=== PATIENT | female | born 1995 | race American Indian/Alaskan Native ===

== ENCOUNTER 2016-10-21 22:33 | Emergency (ER) | payer MEDICAID, OTHER ==
[2016-10-21 23:15] VITALS: BP 113/64
[2016-10-21 23:51] LABS: Basophils % (Auto) 0.2 % (0.0-1.8); Eosinophils % (Auto) 1.4 % (0.0-4.3); Hematocrit 38.9 % (30.3-42.9); Hemoglobin 12.5 gm/dl (10.1-14.3); Mean Corpuscular HGB Conc 32 % (30-34); Mean Corpuscular Hemoglobin 28 pg (28-32); Mean Corpuscular Volume 87 fl (79-97); Platelet Count 267 K/mm3 (140-440); Red Blood Count 4.47 M/mm3 (3.65-5.03); Red Cell Distribution Width 13.8 % (13.2-15.2); White Blood Count 14.4 K/mm3 (4.5-11.0)
[2016-10-22 00:07] LABS: Alanine Aminotransferase 14 units/L (7-56); Albumin 4.1 g/dL (3.9-5); Albumin/Globulin Ratio 1.2 %; Alkaline Phosphatase 51 units/L (35-129); Anion Gap 17 mmol/L; Bilirubin,Total 0.4 mg/dL (0.1-1.2); Blood Urea Nitrogen 9 mg/dL (7-17); Calcium 8.7 mg/dL (8.4-10.2); Carbon Dioxide 24 mmol/L (22-30); Chloride 97.1 mmol/L (98-107); Glucose 80 mg/dL (65-100); Lipase 20 units/L (13-60); Potassium 3.8 mmol/L (3.6-5.0); Sodium 134 mmol/L (137-145); Total Protein 7.4 g/dL (6.3-8.2)
[2016-10-22 01:12] LABS: Bilirubin,Urine NEG (Negative); Blood,Urine NEG (Negative); Ketones,Urine 80 mg/dL (Negative); Leukocyte Esterase,Urine TR (Negative); Mucus,Urine 3+ /HPF; Nitrite,Urine NEG (Negative); Urobilinogen,Urine < 2.0 mg/dL (<2.0)
--- NOTE | 2016-10-23 01:24 | ED Elopement Review ---
ED Pt Elopement review - Results review Lab results: Laboratory Tests 10/21/16 10/21/16 10/21/16 23:44 23:44 Unknown WBC 14.4 H RBC 4.47 Hgb 12.5 Hct 38.9 MCV 87 MCH 28 MCHC 32 RDW 13.8 Plt Count 267 Lymph % (Auto) 18.0 [place] % (Auto) 8.1 H Eos % (Auto) 1.4 Baso % (Auto) 0.2 Lymph # 2.6 [place] # 1.2 H Eos # 0.2 Baso # 0.0 Seg Neutrophils % 72.3 H Seg Neutrophils # 10.4 H Sodium 134 L Potassium 3.8 Chloride 97.1 L Carbon Dioxide 24 Anion Gap 17 BUN 9 Creatinine 0.6 L Estimated GFR > 60 BUN/Creatinine Ratio 15.00 Glucose 80 Calcium 8.7 Total Bilirubin 0.4 AST 16 ALT 14 Alkaline Phosphatase 51 Total Protein 7.4 Albumin 4.1 Albumin/Globulin Ratio 1.2 Lipase 20 Urine Color Yellow Urine Turbidity Clear Urine pH 6.0 Ur Specific [place] 1.027 Urine Protein 30 mg/dl Urine Glucose (UA) Neg Urine Ketones 80 Urine Blood Neg Urine Nitrite Neg Ur Reducing Substances Not Reportable Urine Bilirubin Neg Urine Ictotest Not Reportable Urine Urobilinogen < 2.0 Ur Leukocyte Esterase Tr Urine WBC (Auto) 1.0 Urine RBC (Auto) 1.0 U Epithel Cells (Auto) 2.0 Urine Mucus 3+ Urine HCG, Qual Positive A - Call Back decision Pt Call Back Decision: No action required
== END 2016-10-22 05:40 | disposition left against medical advice (07) ==
LOC: ED 22:33
DX: R10.10 Upper abdominal pain, unspecified (principal); R11.2 Nausea with vomiting, unspecified; R19.7 Diarrhea, unspecified; Z53.21 Procedure and treatment not carried out due to patient leaving prior to being seen by health care provider
CPT/HCPCS: 36415; 80053; 81001; 81025; 83690; 85025